=== PATIENT | male | born 1945 | race Caucasian/White ===

== ENCOUNTER → 2024-03-21 | Outpatient (CLI) | payer MEDICARE, SELFPAY ==
--- NOTE | 2024-03-21 11:55 | NEURO ---
NCS and/or EMG Patient Report Ordering Doctor: Mitch Chavez DATE OF SERVICE: 03/21/24 Yasmani presents with complaints of pain and numbness in both hands. Electrodiagnostic findings: Right median motor nerve demonstrates prolonged latency with reduced amplitude and reduced conduction velocity. Left median motor nerve demonstrates prolonged latency with normal amplitude and reduced conduction velocity. Ulnar motor response is within normal limits bilaterally, including conduction across the elbow. Prolonged right and left median F?waves. Absent right median sensory latency at the wrist. Prolonged left median sensory latency. Needle EMG testing was performed in the upper limbs. All muscles tested showed no evidence of denervation with normal motor unit action potentials. Electrodiagnostic impression: This is an abnormal study in the upper limbs 1. Electrodiagnostic findings suggestive of bilateral median mononeuropathy. This is consistent with a moderate left carpal tunnel syndrome and a severe right carpal tunnel syndrome. 2. There is no electrodiagnostic evidence for cervical radiculopathy. Multi Select Codes Neurology Neurology Interp Codes: 60298-19 Musc test done w/n test comp (interp) (2) and 57762-27 Nrv cndj test 11-12 studies (interp)
== END | disposition home or self-care (01) ==
PROVIDERS: PCP Internal Medicine; Referring Provider Internal Medicine; Visit Provider Internal Medicine
DX: R29.898 Other symptoms and signs involving the musculoskeletal system (principal)
CPT/HCPCS: 95886; 95912